=== PATIENT | male | born 1960 | race Caucasian/White ===

== ENCOUNTER 2018-07-25 03:33 | Emergency (ER) | payer MEDICARE ==
[~2018-07-25] VITALS: Ht 175.3 cm; Wt 86.2 kg
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
[2018-07-25] MEDS ORDERED: QUET25TA5 PO (03:56)
[2018-07-25] MEDS ORDERED: TRAZ-137 PO (03:56)
[2018-07-25 03:57] LABS: BASOPHILS # (AUTO) 0.02 x10^3/uL (0-0.1); BASOPHILS % (AUTO) 0 % (0-1); EOSINOPHILS # (AUTO) 0.19 x10^3/uL (0-0.4); EOSINOPHILS % (AUTO) 2 % (1-7); LYMPHOCYTES # (AUTO) 2.55 x10^3/uL (1-3.4); LYMPHOCYTES % (AUTO) 31 % (22-44); MD NO; MEAN CORPUSCULAR HEMOGLOBIN 33.7 pg (27.5-34.5); MEAN CORPUSCULAR HGB CONC 34.5 g/dL (33.2-36.2); MEAN CORPUSCULAR VOLUME 97.7 fL (81-97); MEAN PLATELET VOLUME 8.4 fL (7.4-10.4); MONOCYTES # (AUTO) 0.59 x10^3/uL (0.2-0.8); MONOCYTES % (AUTO) 7 % (2-9); NEUTROPHILS # (AUTO) 4.82 x10^3/uL (1.8-6.8); NEUTROPHILS % (AUTO) 59 % (42-75); PLATELET COUNT 213 x10^3/uL (130-400); RED BLOOD COUNT 4.93 x10^6/uL (4.38-5.82); RED CELL DISTRIBUTION WIDTH 13.9 % (9.4-14.8)
--- NOTE | 2018-07-25 03:57 | NUR ---
PT TO CT
[2018-07-25 04:06] LABS: ALANINE AMINOTRANSFERASE 21 U/L (12-78); ALBUMIN 4.1 g/dL (3.4-5.0); ANION GAP 7 mmol/L (5-15); CALCIUM 8.6 mg/dL (8.5-10.1); CHLORIDE 111 mmol/L (98-107); CREATININE 0.74 mg/dL (0.7-1.3); SALICYLATE LEVEL 5.6 mg/dL (2.8-20.0)
[2018-07-25 04:08] LABS: ALKALINE PHOSPHATASE 70 U/L (45-117); BILIRUBIN,TOTAL 0.4 mg/dL (0.2-1.0); TOTAL PROTEIN 7.1 g/dL (6.4-8.2)
[2018-07-25 04:16] LABS: ACETAMINOPHEN < 2 mcg/mL (10-30)
[2018-07-25] MEDS ORDERED: SERT25TA PO (04:32)
[2018-07-25] MEDS ORDERED: HTN MEDICATION (04:32)
[2018-07-25 05:21] VITALS: BP 106/61
--- NOTE | 2018-07-25 05:21 | NUR ---
PT RESTING WITH EYES CLOSED, SNORING. EQUAL CHEST RISE/FALL OBSERVED, SIDERAILS UP X2, CALL LIGHT WITHIN REACH.
--- NOTE | 2018-07-25 06:06 | NUR ---
PT A&OX4, ANSWERING ALL QUESTIONS APPROPRIATELY, AMBULATORY IN ROOM AND HALLWAY WITHOUT DIFFICULTY.
== END 2018-07-25 06:09 | disposition home or self-care (01) ==
LOC: ED 05:49
DX: S06.0X0A Concussion without loss of consciousness, initial encounter (principal); F10.120 Alcohol abuse with intoxication, uncomplicated; G89.11 Acute pain due to trauma; M25.552 Pain in left hip; M25.551 Pain in right hip; I10 Essential (primary) hypertension; W19.XXXA Unspecified fall, initial encounter; Y93.89 Activity, other specified; Y92.091 Bathroom in other non-institutional residence as the place of occurrence of the external cause; Y99.8 Other external cause status; Y90.9 Presence of alcohol in blood, level not specified
CPT/HCPCS: 36415; 70450; 72125; 73523; 80053; 80307; 80329; 85025; 93005; 99284; G0480